=== PATIENT | female | born 1960 | race Hispanic/Latino ===

== ENCOUNTER 2017-11-21 21:22 | Emergency (ER) | payer OTHER, MEDICARE ==
[~2017-11-21] VITALS: Ht 152.4 cm; Wt 65.3 kg
[~2017-11-21 21:22] MED LIST: AMOXICILLIN500 M3 PO
--- NOTE | 2017-11-21 22:01 | ED GI/GU/ABDOMINAL COMPLAINT ---
History of Present Illness General Chief Complaint: General Adult Stated Complaint: "ABD PAIN, PAINFULL URINATION" Source: patient, family Exam Limitations: no limitations Vital Signs & Intake/Output Vital Signs & Intake/Output Vital Signs Date Time Temp Pulse Resp B/P B/P Pulse O2 O2 Flow FiO2 Mean Ox Delivery Rate 11/21 2136 98.0 73 18 147/84 100 Room Air Allergies Coded Allergies: No Known Allergies (11/04/15) Reconcile Medications Amoxicillin 500 MG TABLET 1 TAB PO BID PHARYNGITIS Triage Note: PT TO ED C/O UTI S/S GETTING WORSE OVER THE LAST COUPLE OF DAYS. +PAINFUL URINATION OFF AND ON, AND OCCASIONAL PAIN IN BLADDER AREA. DENIES PAIN AT THIS TIME Triage Nurses Notes Reviewed? yes ? n Is pt currently ? No HPI: 57F PMH HIV with 2 days of worsening intermittent suprapubic pain, comes and goes, 01/04, no radaition. Pain similar to prior UTI. Also reports intermittent dysuria, but not consistently. Denies hematuria, vaginal discharge, fever, chills, headache, lightheadedness, chest pain, SOB, abdominal pain, flank pain, diarrhea, constipation. Past History Travel History Traveled to [place] past 21 day No Medical History Any Pertinent Medical History? see below for history Neurological: BRAIN TUMOR EENT: NONE Cardiovascular: NONE Respiratory: NONE Gastrointestinal: NONE Hepatic: NONE Renal: NONE Musculoskeletal: NONE Psychiatric: NONE Endocrine: NONE Blood Disorders: HIV Cancer(s): NONE GENERAL MACHINIST/Reproductive: NONE History of MRSA: No History of VRE: No History of CDIFF: No Pneumonia Vaccine: 06/14/13 Influenza Vaccine: 05/06/13 Surgical History Surgical History: non-contributory Psychosocial History Who do you live with Family Services at Home None What is your primary language Iranian Tobacco Use: Never used ETOH Use: denies use Illicit Drug Use: denies illicit drug use Family History Family History, If Any: MOTHER FH: diabetes mellitus Hx Contributory? No Review of Systems Review of Systems Constitutional: Reports: no symptoms. EENTM: Reports: no symptoms. Respiratory: Reports: no symptoms. Cardiovascular: Reports: no symptoms. GI: Reports: no symptoms. Genitourinary: Reports: no symptoms. Musculoskeletal: Reports: no symptoms. Skin: Reports: no symptoms. Neurological/Psychological: Reports: no symptoms. Hematologic/Endocrine: Reports: no symptoms. Immunologic/Allergic: Reports: no symptoms. All Other Systems: Reviewed and Negative Physical Exam Physical Exam General Appearance: well developed/nourished, no apparent distress Head: atraumatic, normal appearance Eyes: Bilateral: normal appearance, normal inspection. Ears, Nose, Throat, Mouth: hearing grossly normal, moist mucous membrane Neck: normal inspection, supple, full range of motion Respiratory: normal breath sounds, no respiratory distress Cardiovascular: regular rate/rhythm Gastrointestinal: soft, +SUPRAPUBIC TENDERNESS Back: normal inspection, normal range of motion, NO CVA TENDERNESS Extremities: normal range of motion Neurologic/Psych: awake, alert, oriented x 3, normal mood/affect Skin: intact, normal color, warm/dry Core Measures ACS in differential dx? No Sepsis Present: No Sepsis Focused Exam Completed? No Progress Differential Diagnosis: AAA, AMI, appendicitis, biliary colic, bowel obstruction , colon cancer, cholecystitis, diverticulitis, ectopic , endometritis, esophageal varices, gastritis, hepatitis, hernia, hemorrhoids, ischemic bowel, inflamm bowel dis, intrauterine , kidney stone, Amber-Nga tear, ovarian cyst, ovarian torsion, pancreatitis, PID/cervicitis, peptic ulcer, PUD/ GERD, perforated viscous, SBO, threatened AB, UTI/pyelo Plan of Care: Orders Procedure Date/time Status Add-on Test (ER Only) 11/21 2206 Active CULTURE,URINE 11/22 2139 Active URINALYSIS 11/21 2133 Complete EKG 11/21 2133 Active Laboratory Tests 11/21/172139: Urine Color YEL, Urine Clarity CLEAR, Urine pH 6.5, Ur Specific Star <= 1.005 , Urine Protein NEG, Urine Ketones NEG, Urine Nitrite NEG, Urine Bilirubin NEG, Urine Urobilinogen 0.2, Ur Leukocyte Esterase NEG, Ur Microscopic EXAM NOT REQUIRED, Urine Hemoglobin NEG, Urine Glucose NEG 11/21/172133: Total Bilirubin Cancelled, Direct Bilirubin Cancelled, AST Cancelled, ALT Cancelled, Alkaline Phosphatase Cancelled, Total Protein Cancelled, Albumin Cancelled, CBC w Diff Cancelled, WBC Cancelled, RBC Cancelled, Hgb Cancelled, Hct Cancelled, MCV Cancelled, MCH Cancelled, MCHC Cancelled, RDW Cancelled, Plt Count Cancelled, MPV Cancelled Microbiology 11/21 2199 URINE ROUT: Urine Culture - CAN Cancelled: Cancelled via OE: CHANGED TO ADD ON 11/22 2139 URINE ROUT: Urine Culture - RECD Initial ED EKG: none Departure Departure Disposition: HOME OR SELF CARE Condition: Stable Clinical Impression Primary Impression: UTI (urinary tract infection) Referrals: Unknown (PCP/Family) Additional Instructions: Follow up with your PCP. If your symptoms worsen or continue, take the antibiotic as prescribed. If your symptoms resolve, do not take the antibiotic. Drink plenty of water. Return to the ER if new or worsening symptoms. Departure Forms: Customer Survey General Discharge Information Prescriptions: Current Visit Scripts Sulfamethoxazole/Trimethoprim (Bactrim Ds Tablet) 1 TAB PO BID #6 TAB
[2017-11-21] MEDS ORDERED: BACTRIM DS TAB1 EACH PO (22:52)
[2017-11-21 23:01] VITALS: BP 132/72
== END 2017-11-21 23:02 ==
LOC: ERH 21:22
DX: N39.0 Urinary tract infection, site not specified (principal)
CPT/HCPCS: 81003; 87086; 93005; 93010